=== PATIENT | male | born 1960 | race Caucasian/White ===

== ENCOUNTER 2024-07-18 10:02 | Emergency (ER) | payer MEDICAID, OTHER, SELFPAY ==
[2024-07-18 10:10] VITALS: BP 174/99; PULSE 67; RESP 18; TEMP 36.8; O2SAT 99; BMI 26.1
--- NOTE | 2024-07-18 13:07 | ED_ITS ---
HPI - Skin/Abscess/Foreign Bdy General Chief complaint: Skin/Abscess/Foreign Body Stated complaint: lump on abd Time Seen by Provider: 07/18/24 12:31 Source: patient, RN notes reviewed and dietary manager Mode of arrival: ambulatory Limitations: language barrier History of Present Illness ED Provider: Deanna Keen PA-C HPI narrative: This is a 64-year-old male who presents emergency department with complaints of redness to his abdomen for the last 5 days. Patient denies any recent insect bites, or rashes anywhere else. He states that he is otherwise feeling well. He reports that the areas not itchy, reports that is increased in size and pain. Denies any fevers or chills. Denies any medical problems. He has no chest pain or shortness for breath. No dizziness, lightheadedness, abdominal pain, nausea, vomiting or diarrhea.No other complaints or concerns at this time. MD complaint: rash Onset (ago): day(s) Quality: aching Pain Consistency: constant Relieving factors: none Exacerbating factors: none Context: none Associated symptoms: denies other symptoms Treatments prior to arrival: none Related Data Previous Rx's ?Medication ?Instructions ?Recorded cephalexin 500 mg capsule 500 mg PO QID 7 days #28 caps 07/18/24 Allergies Allergy/AdvReac Type Severity Reaction Status Date / Time No Known Allergies Allergy Verified 07/18/24 10:12 Review of Systems Review of Systems: Yes all other systems are reviewed and are negative Constitutional: Constitutional: Reports as per HPI [facility] Social History Social History Smoked in Last 30 Days: No Use of substances other than those prescribed or required for medical reasons: No Advance Directives: No Advance Directives Information Provided: No Physical Exam Vital Signs: Vital Signs: Last Vital Signs Temp 98.2 F 07/18/24 10:10 Pulse 67 07/18/24 10:10 Resp 18 07/18/24 10:10 BP 174/99 H 07/18/24 10:10 Pulse Ox 99 07/18/24 10:10 O2 Del Method Room Air 07/18/24 10:10 BMI result Body Mass Index 26.1 Const: General: cooperative, comfortable and no acute distress Orientation/consciousness: patient oriented x3 Limitations: no limitations HEENT: Head: Yes normal to inspection, Yes normocephalic and Yes atraumatic Ears: hearing grossly normal bilaterally General nose exam: Normal external nose present Face and sinus: Yes normal facial exam Mouth: Normal oral and palatal mucosa present, oropharynx normal and moist mucous membranes Throat: Yes posterior oropharynx normal Eyes: General: appearance normal, both eyes and all related structures Eyelids: Yes eyelids normal Conjunctivae: conjunctivae normal Sclerae: sclerae normal Pupils: Equal, round and reactive pupils present EOM: EOMs intact bilaterally Neck: Neck: Yes normal visual inspection, Yes full ROM and Yes no lymphadenopathy Lymphatic: no lymphadenopathy noted Chest: Chest palpation & inspection: normal inspection of the chest Resp: Effort & Inspection: normal respiratory effort and able to speak in complete sentences Auscultation: clear to auscultation bilaterally, no crackles, no rales, no rhonchi and no wheezes Cardio: Rate: regular rate Rhythm: regular rhythm Heart sounds: S1 normal heart sound present and S2 normal heart sound present GI: Inspection: Yes normal to inspection Skin: Other: Lower Rightabdomen, with 3 x 3 oval area of erythema, induration and warmth. no fluctuance. Mildly tender to palpation. No open wounds, no drainage. Neuro: General: patient oriented x3 and moves all extremities Cranial nerves: Yes Equal, round and reactive pupils present Extrem: General: Yes normal to inspection Right upper extremity: normal to inspection Left upper extremity: normal to inspection Right lower extremity: normal to inspection Left lower extremity: normal to inspection Medications Administered Discontinued Medications Generic Name Dose Route Start Last Admin Trade Name Freq PRN Reason Stop Dose Admin Cephalexin HCl 500 mg 07/18/24 13:13 07/18/24 13:16 Cephalexin 500 Mg Capsule PO 07/18/24 13:14 500 mg ONCE ONE Administration Medical Decision Making Medical Decision Making [facility] Narrative: This is a 64-year-old [place]vian-speaking male, with no known medical problems, who presents emergency department with complaints of lower abdominal warmth and redness for the last 5 days. No trauma or insect bites. On arrival, patient mildly hypertensive at 174/99. He was asymptomatic. Denies any chest pain, shortness breath, dizziness or blurred vision. Differential diagnoses include cellulitis, abscess, cyst, contact dermatitis, folliculitis. Exam consistent with cellulitis. No abscess appreciated during examination. Will discharged on Keflex, given strict return precautions. He understands and agrees with plan. Patient stable for discharge Differential Diagnosis Differential Diagnoses: The differential diagnosis associated with the pre sentation includes see above Discharge Plan Discharge Clinical Impression: Cellulitis Patient Disposition: Home, Self-Care Instructions: Cellulitis (ED) Additional Instructions: You were seen in the emergency department today and have evidence of a skin infection. Please take prescribed antibiotic as directed. Finish the entire course even if your symptoms improve. Apply warm compresses 5-6 times per day. If any new or worsening symptoms occur including but not limited to worsening pain, increased redness, swelling, please seek emergent care. Follow-up with the [facility]. Call on Saturday to make an appointment. [address] [phone] Prescriptions: New cephalexin 500 mg capsule 500 mg PO QID 7 Days Qty: 28 0RF Referrals: [facility] [Physician] - Discharge Date/Time: 07/18/24 13:30 Print Language: Latvian
[2024-07-18] MEDS: cephALEXin 500 MG CAPSULE PO (13:16)
== END 2024-07-18 13:30 | disposition home or self-care (01) ==
PROVIDERS: Emergency Provider Emergency Medicine
DX: L03.311 Cellulitis of abdominal wall (principal)
CPT/HCPCS: 99283; 99284